=== PATIENT | female | born 1995 | race Hispanic/Latino ===

== ENCOUNTER 2020-12-24 10:04 | Emergency (ER) | payer OTHER ==
[2020-12-24] MEDS ORDERED: Boostrix 0.5 ML (Tdap) VIAL ONE (11:47)
[2020-12-24] MEDS ORDERED: Lidocaine 1% w/Epinephrine 1:100K 20 ML VIAL ONE (11:47)
== END 2020-12-24 15:00 | disposition home or self-care (01) ==
LOC: ERS 10:04
DX: S01.551A Open bite of lip, initial encounter (principal); W54.0XXA Bitten by dog, initial encounter; Z23 Encounter for immunization
CPT/HCPCS: 12011; 90715